=== PATIENT | female | born 1960 | race Hispanic/Latino ===

== ENCOUNTER → 2018-09-03 | Outpatient (CLI) | payer OTHER ==
[~2018-09-03] MED LIST: CARAFATE; CLONIDINE HCL0.1 MG PO; IOPAMIDOL 370 MG/ML 200 ML INFUS..BTL INJ ONE; OMEPRAZOLE40 MG PO; PREDNISONE; SIMVASTATIN40 MG PO; SODIUM CHLORIDE 0.9% 50ML 50 ML ONE; TRAMADOL-ACETAMI1 EA PO
[2018-09-03 16:16] LABS: BLOOD UREA NITROGEN 11 mg/dL (7-26); BUN/CREATININE RATIO 14 (6-25); CREATININE, SERUM 0.76 mg/dL (0.57-1.11); EST GLOMERULAR FILTRATION RATE > 60 ML/MIN (60-)
--- NOTE | 2018-09-03 21:44 | Diagnostic Imaging Report ---
EXAMINATION: Head CT with contrast. HISTORY:Headache. COMPARISON:Report of CT brain from 02/05/2017, images are not available for comparison at the time of interpretation. TECHNIQUE: Multidetector axial images were obtained from the foramen magnum to the vertex with and without contrast. The images were reconstructed using brain and bone algorithms. Thin section brain images were reformatted into coronal and sagittal planes. Dose modulation, iterative reconstruction, and/or weight based adjustment of the mA/kV was utilized to reduce the radiation dose to as low as reasonably achievable. Intravenous contrast: 100 mL of Isovue-370. FINDINGS: Skull: No lytic or blastic lesions. No surgical changes. Parenchyma: Focal hypodensity in left putamen represents age indeterminate lacunar infarct. Nonspecific few, scattered supratentorial white matter hypodensity are likely related to small vessel ischemic changes. No abnormal enhancement. Suboptimal evaluation for acute hemorrhage due to lack of precontrast images. Despite the limitation no gross acute intraparenchymal hemorrhage, mass or acute major vascular territorial infarct. Arteries: Unremarkable. Dural sinuses: No filling defects. Ventricles: No hydrocephalus or displacement. Extra-axial spaces: No abnormal density or enhancement. Brain volume: Normal for age. Craniocervical junction: No mass, Chiari malformation, or basilar invagination. Sella: No mass. Paranasal/mastoid sinuses: Imaged portions unremarkable. IMPRESSION: 1. 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 2. Mild supratentorial white matter microvascular ischemic changes. Signed by: Dr. Vaishnavi De La O M.D. on 09/03/2018 9:41 PM
== END ==
LOC: CT 15:15
PROVIDERS: ATTEND Internal Medicine
DX: R51 Headache (principal)
CPT/HCPCS: 36415; 70460; 82565; 84520; Q9967

== ENCOUNTER → 2023-04-22 | Outpatient (REF) | payer OTHER ==
[~2023-04-22] MED LIST changes: -IOPAMIDOL 370 MG/ML 200 ML INFUS..BTL INJ ONE; -SODIUM CHLORIDE 0.9% 50ML 50 ML ONE
== END ==
LOC: MAMMO 13:51
PROVIDERS: ATTEND Family Medicine
DX: Z12.31 Encounter for screening mammogram for malignant neoplasm of breast (principal)
CPT/HCPCS: 77067

== ENCOUNTER → 2024-12-09 | Outpatient (REF) | payer MEDICARE ==
[~2024-12-09] MED LIST changes: +DICYCLOMINE HCL20 MG PO
== END ==
LOC: US 07:44
PROVIDERS: ATTEND Family Medicine
DX: R10.9 Unspecified abdominal pain (principal)
CPT/HCPCS: 76700